=== PATIENT | female | born 1945 | race Hispanic/Latino ===

== ENCOUNTER → 2020-02-10 | Outpatient (CLI) | payer OTHER, MEDICARE ==
[~2020-02-10] MED LIST: IOHEXOL-350 50ML VIAL IV ONE
== END | disposition home or self-care (01) ==
LOC: RAH 14:23
PROVIDERS: ATTEND Otolaryngology
DX: G31.1 Senile degeneration of brain, not elsewhere classified (principal); I67.82 Cerebral ischemia; G93.89 Other specified disorders of brain; R13.10 Dysphagia, unspecified; R47.81 Slurred speech
CPT/HCPCS: 70470; Q9967